=== PATIENT | female | born 1970 | race American Indian/Alaskan Native ===

== ENCOUNTER 2019-02-28 14:28 | Emergency (ER) | payer SELFPAY ==
[2019-02-28 15:13] VITALS: BP 153/103
--- NOTE | 2019-02-28 15:24 | Event Note ---
ED Screening Note Date of service: 02/28/19 Time: 15:22 ED Screening Note: 48 y o female presents with sudden onset of dizziness and lightheadedness x 2 days ago woerse with wlking and movemnt better if sit still PMH: htn out of meds x 1 month Finger stick : 174 This initial assessment/diagnostic orders/clinical plan/treatment(s) is/are subject to change based on patients health status, clinical progression and re- assessment by fellow clinical providers in the ED. Further treatment and workup at subsequent clinical providers discretion. Patient/guardian urged not to elope from the ED as their condition may be serious if not clinically assessed and managed. Initial orders include: cbc,cmp, ua mecline
[2019-02-28 16:28] LABS: Bilirubin,Urine NEG (Negative); Blood,Urine NEG (Negative); Color,Urine Amber (Yellow); Mucus,Urine 2+ /HPF; Protein,Urine <15 mg/dL mg/dL (Negative)
[2019-02-28 16:39] LABS: Basophils # (Auto) 0.1 K/mm3 (0.0-0.1); Basophils % (Auto) 0.6 % (0.0-1.8); Eosinophils # (Auto) 0.2 K/mm3 (0.0-0.4); Eosinophils % (Auto) 2.1 % (0.0-4.3); Hematocrit 39.8 % (30.3-42.9); Hemoglobin 12.6 gm/dl (10.1-14.3); Lymphocytes # (Auto) 3.3 K/mm3 (1.2-5.4); Lymphocytes % (Auto) 31.9 % (13.4-35.0); Mean Corpuscular HGB Conc 32 % (30-34); Mean Corpuscular Volume 82 fl (79-97); Monocytes # (Auto) 0.6 K/mm3 (0.0-0.8); Monocytes % (Auto) 5.6 % (0.0-7.3); Red Blood Count 4.86 M/mm3 (3.65-5.03)
[2019-02-28 16:40] LABS: Platelet Count 256 K/mm3 (140-440)
[2019-02-28 16:46] LABS: Alanine Aminotransferase 12 units/L (7-56); BUN/Creatinine Ratio 11; Blood Urea Nitrogen 10 mg/dL (7-17); Calcium 9.5 mg/dL (8.4-10.2); Hemolysis Index 8
== END 2019-02-28 23:05 | disposition left against medical advice (07) ==
LOC: ED 14:28
DX: R42 Dizziness and giddiness (principal); R51 Headache; Z53.21 Procedure and treatment not carried out due to patient leaving prior to being seen by health care provider
CPT/HCPCS: 36415; 80053; 81001; 82962; 84703; 85025

== ENCOUNTER 2021-04-22 12:55 | Emergency (ER) | payer SELFPAY ==
[2021-04-22 14:11] VITALS: BP 171/112
--- NOTE | 2021-04-22 14:25 | Emergency Department Report ---
ED General Adult HPI - General Chief complaint: High BP Stated complaint: HIGH BP Time Seen by Provider: 04/22/21 14:15 Source: patient Mode of arrival: Ambulatory Limitations: No Limitations - History of Present Illness Initial comments: Chief complaint: I need blood pressure medication. HPI: This is a 51-year-old female with history of hypertension who requests refill of blood pressure medications. 1 week ago she was being treated by a dentist. To distraction was planned. Her blood pressure was too high for the procedure. She recently had her blood pressure obtained at the grocery store. Her lower number was in the triple digits. Pharmacist recommended evaluation in emergency department. She denies headache, blurry vision, chest pain, hematuria. She has been in her normal state of health with exception of dental pain. She normally takes lisinopril and amlodipine. Her primary care physician does not have appointments available for the next month. -: week(s) (High blood pressure for at least 1 week) Severity scale (0 -10): 8 (8 out of 10 dental pain) Consistency: constant Improves with: none Worsens with: none Associated Symptoms: denies other symptoms Treatments Prior to Arrival: none - Related Data Previous Rx's Medication Instructions Recorded Last Taken Type amLODIPine 10 mg PO DAILY 90 Days #90 tab 04/22/21 Unknown Rx lisinopriL [Zestril TAB] 40 mg PO DAILY 90 Days #90 04/22/21 Unknown Rx Allergies Allergy/AdvReac Type Severity Reaction Status Date / Time No Known Allergies Allergy Unverified 02/28/19 15:08 ED Review of Systems ROS: Stated complaint: HIGH BP Other details as noted in HPI Comment: All other systems reviewed and negative Constitutional: denies: fever, malaise Respiratory: denies: cough, shortness of breath Cardiovascular: denies: chest pain Gastrointestinal: denies: abdominal pain, nausea, vomiting Neurological: denies: headache ED Past Medical Hx - Past Medical History Previous Medical History?: Yes Hx Hypertension: Yes - Surgical History Past Surgical History?: Yes Additional Surgical History: x 1 - Social History Smoking Status: Current Every Day Smoker Substance Use Type: Alcohol - Medications Home Medications: Home Medications Medication Instructions Recorded Confirmed Last Taken Type amLODIPine 10 mg PO DAILY 90 Days #90 tab 04/22/21 Unknown Rx lisinopriL [Zestril TAB] 40 mg PO DAILY 90 Days #90 04/22/21 Unknown Rx ED Physical Exam - General Limitations: No Limitations General appearance: alert, in no apparent distress - Head Head exam: Present: atraumatic, normocephalic, other (No facial swelling, normal voice no drooling no neck edema) - Eye Eye exam: Present: normal appearance - ENT ENT exam: Present: mucous membranes moist - Neck Neck exam: Present: normal inspection - Respiratory Respiratory exam: Present: normal lung sounds bilaterally. Absent: respiratory distress - Cardiovascular Cardiovascular Exam: Present: regular rate, normal rhythm. Absent: systolic murmur, diastolic murmur, rubs, gallop - GI/Abdominal GI/Abdominal exam: Present: soft, normal bowel sounds. Absent: distended, tenderness, guarding, rebound - Extremities Exam Extremities exam: Present: normal inspection - Back Exam Back exam: Present: normal inspection - Neurological Exam Neurological exam: Present: alert, oriented X3 - Psychiatric Psychiatric exam: Present: normal affect, normal mood - Skin Skin exam: Present: warm, dry, intact, normal color. Absent: rash ED Course Vital Signs 04/22/21 14:10 Temperature 98.4 F Pulse Rate 83 Respiratory 20 Rate Blood Pressure 171/112 [Right] O2 Sat by Pulse 99 Oximetry ED Medical Decision Making - Medical Decision Making 1. Asymptomatic hypertensive urgency: I have prescribed 90-day supply of lisin opril and amlodipine. 2. Dental pain: I will refer treatment to patient's personal dentist. She does not have signs of facial cellulitis or neck infection. Critical care attestation.: If time is entered above; I have spent that time in minutes in the direct care of this critically ill patient, excluding procedure time. ED Disposition Clinical Impression: Hypertensive urgency Disposition: 01 HOME / SELF CARE / HOMELESS Is pt being admited?: No Does the pt Need Aspirin: No Condition: Stable Instructions: Managing Your Hypertension Prescriptions: amLODIPine 10 mg PO DAILY 90 Days #90 tab lisinopriL [Zestril TAB] 40 mg PO DAILY 90 Days #90 Referrals: PRIMARY CARE, [Referring] - 3-5 Days MICHAELA HARDY MD [Staff Physician] - as needed
== END 2021-04-22 14:50 | disposition home or self-care (01) ==
LOC: ED 12:55
DX: I16.0 Hypertensive urgency (principal); I10 Essential (primary) hypertension; F17.200 Nicotine dependence, unspecified, uncomplicated; Z98.890 Other specified postprocedural states; Z79.899 Other long term (current) drug therapy
CPT/HCPCS: 99282